=== PATIENT | male | born 1980 | race Caucasian/White ===

== ENCOUNTER 2019-05-15 08:03 | Emergency (ER) | payer OTHER ==
[~2019-05-15] VITALS: Ht 190.5 cm; Wt 93.2 kg
[~2019-05-15 08:03] MED LIST: BIO TEARS; CIPRO 500MG TA500 MG PO; FISH OIL1 IU PO; FLAGYL500 MG PO; IMURAN 50MG TAB50 MG PO; MVI PO; PERCOCET 325 MG1 TAB PO; PREDNISONE20 MG PO; PRILOSEC 20MG20 MG PO; VITAMIN D32000 IU PO
[2019-05-15 08:12] VITALS: BP 129/70; TEMP 98.4
[2019-05-15] MEDS ORDERED: CIMZIA200 MG/ML SQ (09:18)
[2019-05-15 10:00] VITALS: PULSE 66
== END 2019-05-15 10:00 | disposition home or self-care (01) ==
LOC: COL.ER 08:03
DX: S52.122A Displaced fracture of head of left radius, initial encounter for closed fracture (principal); K50.90 Crohn's disease, unspecified, without complications; W00.0XXA Fall on same level due to ice and snow, initial encounter; Y92.410 Unspecified street and highway as the place of occurrence of the external cause

== ENCOUNTER → 2019-11-14 | Outpatient (CLI) | payer OTHER ==
[~2019-11-14] MED LIST changes: +CIMZIA200 MG/ML SQ
== END ==
LOC: COL.RAD 07:06
DX: K50.813 Crohn's disease of both small and large intestine with fistula (principal); D89.9 Disorder involving the immune mechanism, unspecified
CPT/HCPCS: Q9967

== ENCOUNTER 2021-12-30 03:07 | Emergency (ER) | payer OTHER ==
[~2021-12-30] VITALS: Ht 190.5 cm; Wt 72.7 kg
[2021-12-30 03:16] VITALS: TEMP 98.9
[2021-12-30] MEDS ORDERED: CIPRO 500MG TA500 MG PO (03:19)
[2021-12-30] MEDS ORDERED: ZOFRAN ODT4 MG PO (03:19)
[2021-12-30] MEDS ORDERED: FLAGYL500 MG PO (03:19)
[2021-12-30] MEDS ORDERED: PREDNISONE20 MG PO (03:20)
[2021-12-30] MEDS ORDERED: ZOHYDRO ER15 MG PO (03:20)
[2021-12-30] MEDS ORDERED: NORCO 325 MG-51 TAB PO (03:20)
[2021-12-30 03:44] LABS: BASO # 0.1 K/mm3 (0.0-0.2); BASO % 0.8 % (0.0-2.0); EOS % 0.1 % (0.0-4.0); GRAN % 69.3 % (42.2-75.2); HEMATOCRIT 42.9 % (42.0-52.0); HEMOGLOBIN 14.2 g/dl (13.5-18.0); LYMPH # 0.9 K/mm3 (1.2-3.4); LYMPH % 11.9 % (20.0-51.0); MEAN CELL VOLUME 95 fl (80.0-100.0); MEAN CORPUSCULAR HEMOGLOBIN 32 pg (27-31); MEAN CORPUSCULAR HGB CONC 33 g/dl (33.0-37.0); MEAN PLATELET VOLUME 8.3 fl (7.4-10.4); MONO # 1.3 K/mm3 (0.1-0.6); MONO % 17.5 % (1.7-9.3); PLATELET COUNT 497 K/mm3 (130-400); REDCELL DISTRIBUTION WIDTH-CV 12.3 % (11.5-14.5)
[2021-12-30 03:57] LABS: BILIRUBIN,TOTAL 0.7 mg/dL (0.2-1.2); C-REACTIVE PROTEIN 7.05 mg/dL (0.00-0.50); CALCIUM 9.3 mg/dL (8.4-10.2); CREATININE, serum 0.88 mg/dL (0.72-1.25); POTASSIUM 3.8 mmol/L (3.5-4.5); TOTAL PROTEIN 7.5 gm/dL (6.2-8.1)
[2021-12-30 04:52] VITALS: BP 116/69; PULSE 62
== END 2021-12-30 04:56 | disposition home or self-care (01) ==
LOC: COL.ER 03:07
PROVIDERS: Emergency Medicine
DX: K50.90 Crohn's disease, unspecified, without complications (principal); K60.4 Rectal fistula; R79.82 Elevated C-reactive protein (CRP); Z20.822 Contact with and (suspected) exposure to COVID-19; Z28.310 Unvaccinated for COVID-19
CPT/HCPCS: J2405; J7030